=== PATIENT | female | born 1990 | race Asian ===

== ENCOUNTER 2019-10-25 02:36 | Emergency (ER) | payer OTHER ==
--- NOTE | 2019-10-25 03:05 | PDOC ---
History of Present Illness - General Chief Complaint: Nausea/Vomiting Stated Complaint: VOMITING,CRAMPS Time Seen by Provider: 10/25/19 03:04 Past History - Past Medical History Allergies/Adverse Reactions: Allergies Allergy/AdvReac Type Severity Reaction Status Date / Time No Known Allergies Allergy Verified 10/25/19 02:52 Home Medications: Ambulatory Orders Acetaminophen [Tylenol] 650 mg PO PRN PRN 10/25/19 Nitrofurantoin Macrocrystal [Nitrofurantoin] 100 mg PO BID 7 Days #14 capsule No122/Iron/Folic Acid [ Multi Tablet] 1 each PO DAILY 10/25/19 - Psycho Social/Smoking Cessation Hx Smoking History: Never smoked Have you smoked in the past 12 months: No Information on smoking cessation initiated: No Hx Alcohol Use: No Drug/Substance Use Hx: No *Physical Exam - Vital Signs Last Vital Signs Temp Pulse Resp BP Pulse Ox 97.5 F L 94 H 22 H 116/86 100 10/25/19 02:52 10/25/19 02:52 10/25/19 02:52 10/25/19 02:52 10/25/19 02:52 ED Treatment Course - LABORATORY CBC & Chemistry Diagram: 10/25/19 04:20 10/25/19 04:20 Medical Decision Making - Medical Decision Making 10/25/19 03:30 HPI: 29yo F no PMH at [id number] by ultrasound presents from home c/o 6hrs of N/V and epigastric pain. Pt was in [facility] today. Pt had small/usual size dinner cooked at home this PM. At 2130, pt developed nausea and nonbilious vomiting as well as epigastric poking type intermittent pain of gradual onset worsening without provoking/palliating factors without medications tried no hx similar sx or reflux. Pt went to sleep but when woke up pain was still there, worse, and pt continued to vomit 2x, for a total of 10x since starting. A few times there was a tiny speck of bright red blood in the vomit. Endorses PO intolerance even to water. Denies vaginal bleeding, vaginal discharge, dysuria, hematuria, contractions, lower abdominal pain, water breaking, fever, chills, fatigue, headache, dizziness, numbness/tingling, weakness, vision changes, shortness of breath, cough, chest pain, palpitations, leg swelling, blood in stool, constipation, dysuria, hematuria. Endorses few drops of clear/white fluid in underwear after vomiting hard which pt is unsure of is urine or discharge, denies feeling anything come out. Pt had 2 BMs today and 2nd one was watery/soft like diarrhea, nonbloody. Denies sick contacts, recent travel, recent antibiotic use, new foods. Food was cooked at home and ate same thing without similar sx. Improvement Spec - Dr Johnston ([facility]) ROS: Constitutional: Negative for chills, fever, fatigue, diaphoresis. HENT: Negative for sore throat, rhinorrhea, congestion. Eyes: Negative for visual disturbance. Respiratory: Negative for shortness of breath, cough, and wheezing. Cardiovascular: Negative for chest pain, palpitations, and leg swelling. Gastrointestinal: Positive for epigastric pain, nausea, vomiting, diarrhea. Negative for blood in stool, constipation. Genitourinary: Negative for dysuria, flank pain, and hematuria. Musculoskeletal: Negative for myalgias, back pain, and neck pain. Skin: Negative for rash. Neurological: Negative for light-headedness, dizziness, vertigo, syncope, weakness, numbness and headaches. Psychiatric/Behavioral: Negative for behavioral problems and confusion. PE: Gen: Alert, NAD, comfortable-appearing. HEENT: PERRL, EOMI, MMM, NCAT. No conjunctival pallor. Sclera are non-icteric. CV: Regular rate and rhythm. No murmurs, rubs, or gallops. PULM: No resp distress. CTAB, no wheezes, rales, or rhonchi. ABD: gravid uterus, slight epigastric TTP, soft, ND, no rebound tenderness or guarding, no CVA tenderness. BACK: No TTP of c/t/l-spine. No step-offs or deformities. MSK: No bony deformities. 2+ pulses in all extremities. NEURO: AAOx3. PERRL. No gross CN deficits. Strength and sensation grossly intact throughout. EXTREMITIES: No cyanosis. No clubbing. No edema. No calf tenderness. PSYCH: Normal mood and thought pattern. SKIN: Warm and dry. Normal capillary refill. No rashes. No jaundice. MDM: 29yo F no PMH at [id number] by ultrasound presents from home with 6hrs of N/V and epigastric pain, and 1 episode of diarrhea. Hemodynamically stable, afebrile, slight epigastric TTP, non-acute abdomen. Ddx: most consistent with gastroenteritis or gastritis/reflux. Also consider pancreatitis, metabolic derangement, cholelithiasis/cystitis, anemia, infection , cardiac pathology (very low concern due to lack of RFs or CP/SOB), gastroparesis of -EKG -CBC,CMP,Lipase,Mg,Phos,Trop,UA -IVF -Zofran, consider -safe GI cocktail pending reassessment -Dispo: likely L&D 10/25/19 06:07 Pt sleeping comfortably. Pt states nausea and pain improved s/p zofran and fluids. Labs reviewed. Pending UA and EKG. 10/25/19 07:31 UA positive for asymptomatic bacteriuria - macrobid here and rx sent. EKG reviewed: NSR, 87bpm, nromal intervals, normal axis, no e/o acute ischemia Medically cleared and safe to go to L&D for further evaluation. Discharge - Discharge Information Problems reviewed: Yes Clinical Impression/Diagnosis: Epigastric abdominal pain Condition: Stable Disposition: HOME - Additional Discharge Information Prescriptions: Nitrofurantoin Macrocrystal [Nitrofurantoin] 100 mg PO BID 7 Days #14 capsule - Follow up/Referral Referrals: Génesis Oliver MD [Staff Physician] - Janet Quinteros [Primary Care Provider] - - Patient Discharge Instructions Additional Instructions: Patient evaluated by Dr. Oliver. D/c home with instructions. Keep f/u apt. Patient verbalized understanding. D/c home stable and undelivered. Print Language: BULGARIAN - Post Discharge Activity
--- NOTE | 2019-10-25 03:12 | PDOC ---
Attending Attestation - Resident Resident Name: Lucille Duarte - ED Attending Attestation I have performed the following: I have examined & evaluated the patient, The case was reviewed & discussed with the resident, I agree w/resident's findings & plan - HPI HPI: 10/25/19 03:12 Pt comes with N/V she happens to be 30+ weeks . Vomiting becn 30 min after dinner. She doesn't think that she was food poisoned. She had diarrhea x 2 episodes. She has no other complaints. No fever No flank pain and no dysuria. She has no elevated BP or edema No SOB and no ill contacts. 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 No tachycardia Aefbrile Heart and lungs normal Abd soft NT ND No flank pain Pt has no pitting edema Only epigastric tenderness Minimal LLQ pain also with palpation - likely gas related. - Medical Decision Making 10/25/19 03:33 Pt will have basic labs and UA and hydration and then she will be sent to L+D for eval of the fetus. 10/25/19 04:52 WBC is elevated; but this is expected in a viral gastroenteritis or a food poisoning gastroenteritis 10/25/19 05:22 Chem is normal; INR is normal UA pending. If normal, she will be sent up to L+D 10/25/19 05:55 UA still pending 10/25/19 06:57 Pt will be signed out to the day ER docs. Heart Score/ECG Review - ECG Intrepretation Rhythm: Regular Rhythm - [place]: Normal - P and HI Prominent R with upright T in V1 (true posterior MN): No Delta Wave(s) Present: No WPW: No - QRS Poor R Wave Progression: No Q Wave Present: No - ST and T Early Repolarization: No Non Specific ST-T Wave changes: No Flattened T Waves: No Prolonged Q-T Interval: No - ECG Impressions Normal ECG: Yes Non-specific ST Elevation: No Ischemic Changes: No Bradycardia: No
[2019-10-25] MEDS ORDERED: SODIUM CHLORIDE 0.9% 500 ML INFUS.BAG IV ONE (03:13)
[2019-10-25] MEDS ORDERED: ONDANSETRON 4 MG/2 ML VIAL IVPUSH ONE (03:23)
[2019-10-25] MEDS ORDERED: ONDANSETRON 4 MG/2 ML VIAL ONE (04:08)
[2019-10-25 04:45] LABS: BASO % 0.3 % (0-2.0); EOS % 0.3 % (0-4.5); HEMATOCRIT 34.8 % (32.4-45.2); HEMOGLOBIN 11.6 GM/dL (10.7-15.3); LYMPH % 6.9 % (8-40); MCH 29.4 pg (25.7-33.7); MCHC 33.3 g/dl (32.0-36.0); MEAN CELL VOLUME 88.2 fl (80-96); MEAN PLT VOLUME 7.9 fl (7.5-11.1); MONO % 4.4 % (3.8-10.2); NEUT % 88.1 % (42.8-82.8); PLATELET COUNT 287 K/MM3 (134-434); RBC 3.94 M/mm3 (3.60-5.2); RDW 15.9 % (11.6-15.6); WHITE BLOOD COUNT 15.4 K/mm3 (4.0-10.0)
[2019-10-25 04:58] LABS: INR 0.96 (0.83-1.09); PROTHROMBIN TIME (PATIENT) 11.3 SEC (9.7-13.0)
[2019-10-25 05:12] LABS: ALBUMIN 2.8 g/dl (3.4-5.0); BILIRUBIN,TOTAL 0.4 mg/dL (0.2-1); BLOOD UREA NITROGEN 11.6 mg/dL (7-18); CALCIUM 8.2 mg/dL (8.5-10.1); CREATININE 0.5 mg/dL (0.55-1.3); TOT PROT 6.2 g/dl (6.4-8.2)
[2019-10-25 05:24] LABS: LIPASE 109 U/L (73-393); MAGNESIUM 1.9 mg/dL (1.8-2.4); PHOSPHOROUS 3.4 mg/dL (2.5-4.9)
[2019-10-25 06:57] LABS: EPI CELLS 6.6 /HPF (0-5/HPF); HYALINE CASTS 1 /lpf (0-8); URINE BACTERIA 365.1 /hpf (NEGATIVE); URINE RBC 3 /hpf (0-4); URINE WBC 3 /hpf (0-5)
[2019-10-25 06:58] LABS: URINE APPEARANCE Clear; URINE BILIRUBIN Negative (NEGATIVE); URINE COLOR Yellow; URINE GLUCOSE (UA) Negative (NEGATIVE); URINE KETONE Trace (NEGATIVE); URINE LEUK ESTERASE Negative (NEGATIVE); URINE NITRITE Negative (NEGATIVE); URINE PROTEIN Negative (NEGATIVE); URINE UROBILINOGEN 0.2 mg/dL (0.2-1.0)
[2019-10-25 07:12] LABS: PH,URINE 6.5 (5.0-8.0); URINE APPEARANCE CLEAR; URINE BILIRUBIN NEGATIVE (NEGATIVE); URINE COLOR YELLOW; URINE GLUCOSE (UA) NEGATIVE (NEGATIVE); URINE KETONE NEGATIVE (NEGATIVE); URINE LEUK ESTERASE NEGATIVE (NEGATIVE); URINE NITRITE NEGATIVE (NEGATIVE); URINE PROTEIN NEGATIVE (NEGATIVE); URINE UROBILINOGEN 0.2 mg/dL (0.2-1.0)
[2019-10-25] MEDS ORDERED: NITROFURANTOIN MACROCRYSTAL 50 MG CAPSULE (FP) ONE (07:30)
[2019-10-25] MEDS ORDERED: NITROFURANTOIN MACROCRYSTAL 50 MG CAPSULE (FP) PO SCH (07:30)
[2019-10-25 08:55] VITALS: BP 112/68; PULSE 82; TEMP 98.4
--- NOTE | 2019-10-25 14:11 | EKG ---
Test Reason : Blood Pressure : / mmHG Vent. Rate : 087 BPM Atrial Rate : 087 BPM P-R Int : 150 ms QRS Dur : 088 ms QT Int : 394 ms P-R-T Axes : 060 070 054 degrees QTc Int : 474 ms NORMAL SINUS RHYTHM EARLY REPOLARIZATION NO PREVIOUS ECGS AVAILABLE Confirmed by ETHEL COOPER MD ([id number]) on 10/25/2019 2:11:21 PM Referred By: Confirmed By:ETHEL COOPER MD
== END 2019-10-25 09:05 | disposition home or self-care (01) ==
LOC: JER 02:36
PROC: 3E033GC Introduction of Other Therapeutic Substance into Peripheral Vein, Percutaneous Approach (ICD-10-PCS; principal; 2019-10-25)
PROC: 3E0337Z Introduction of Electrolytic and Water Balance Substance into Peripheral Vein, Percutaneous Approach (ICD-10-PCS; 2019-10-25)
DX: O26.893 Other specified pregnancy related conditions, third trimester (principal); Z3A.33 33 weeks gestation of pregnancy; R10.13 Epigastric pain
CPT/HCPCS: 36415; 80053; 81003; 83690; 83735; 84100; 84484; 85025; 85610; 85730; 93005; 93010; 99283-25

== ENCOUNTER 2019-11-27 07:30 | Inpatient (IN) | payer OTHER ==
[~2019-11-27 07:30] MED LIST: ELECTROLYTE-148 SOLN 1,000 ML IV SCH
[2019-11-27] MEDS ORDERED: AMPICILLIN SODIUM 2 GM VIAL ONE (08:41)
[2019-11-27] MEDS ORDERED: AMPICILLIN - 2 GM in SODIUM CHLORIDE 100 ML IVPB ONE (08:45)
[2019-11-27 09:18] VITALS: BMI 20.7
[2019-11-27 10:29] LABS: BASO % 0.4 % (0-2.0); EOS % 0.5 % (0-4.5); HEMATOCRIT 34.9 % (32.4-45.2); HEMOGLOBIN 11.6 GM/dL (10.7-15.3); LYMPH % 17.9 % (8-40); MCH 28.8 pg (25.7-33.7); MCHC 33.2 g/dl (32.0-36.0); MEAN CELL VOLUME 86.6 fl (80-96); MEAN PLT VOLUME 7.8 fl (7.5-11.1); MONO % 7.6 % (3.8-10.2); NEUT % 73.6 % (42.8-82.8); PLATELET COUNT 274 K/MM3 (134-434); RBC 4.02 M/mm3 (3.60-5.2); WHITE BLOOD COUNT 8.5 K/mm3 (4.0-10.0)
[2019-11-27 10:31] LABS: BLOOD UREA NITROGEN 14.2 mg/dL (7-18); CALCIUM 8.9 mg/dL (8.5-10.1); CREATININE 0.6 mg/dL (0.55-1.3); POTASSIUM 3.6 mmol/L (3.5-5.1)
[2019-11-27 10:31] LABS: INR 0.93 (0.83-1.09)
[2019-11-27 10:34] LABS: ACTIVATED PTT 29.3 SECONDS (25.2-36.5)
[2019-11-27] MEDS ORDERED: AMPICILLIN SODIUM 1 GM VIAL ONE ×3 (12:45→20:04)
[2019-11-27] MEDS: AMPICILLIN - 1 GM in SODIUM CHLORIDE 100 ML IVPB SCH ×3 (12:45→20:15)
[2019-11-27] MEDS ORDERED: OXYTOCIN 30 UNITS in 0.9% NS 30 UNIT/500 ML INFUS.BAG IVPB SCH (14:00)
[2019-11-27] MEDS ORDERED: OXYTOCIN 30 UNITS in 0.9% NS 30 UNIT/500 ML INFUS.BAG IVPB ONE (14:02)
[2019-11-27] MEDS ORDERED: ELECTROLYTE-148 SOLN 1,000 ML IV SCH (16:00)
--- NOTE | 2019-11-27 16:00 | HP ---
Past Medical History - Primary Care Physician PCP:: Anthony Baron - Admission Chief Complaint: 29yo P0 with at EGA 38w1d admitted with spontaneous labor. History of Present Illness: complicated by: GDMA A1 Vaginal GBS (+) History Source: Patient, Medical Record Limitations to Obtaining History: No Limitations - Past Medical History RECREATION FACILITY ATTENDANT: No: Alzheimer's, CVA, Dementia, Migraine, Multiple Sclerosis, Peripheral Neuropathy, Parkinson's, Seizure, Syncope, TIA, Vertigo, Other Cardiovascular: No: AFIB, Aneurysm, Aortic Insufficiency, Aortic Stenosis, CAD, CHF, Deep Vein Thrombosis, HTN, Hyperlipdemia, MO, Mitral Insufficiency, Mitral Stenosis, Murmur, Pulmonary Hypertension, Other Pulmonary: No: Asthma, Bronchitis, Cancer, COPD, O2 Dependent, Pneumonia, Previously Intubated, Pulmonary Embolus, Pulmonary Fibrosis, Sleep Apnea, Other Gastrointestinal: No: Ascites, Cancer, Constipation, Crohn's Disease, Diverticulitis, Diverticulosis, Esophageal Varices, Gastritis, GERD, GI Bleed, Hemorrhoids, Hiatal Hernia, Inflamatory Bowel Disease, Irritable Bowel Disease, Pancreatitis, Peptic Ulcer Disease, Ulcerative Colitis, Other Hepatobiliary: No: Cirrhosis, Cholelithiasis, Cholecystitis, Choledocholithiasis , Hepatitis A, Hepatitis B, Hepatitis C, Other Renal/: No: Renal Failure, Renal Inusuff, BPH, Cancer, Hematuria, Hemodialysis , Neurogenic Bladder, Renal Calculi, UTI, Other Reproductive: No: Ectopic , Endometriosis, Fibroids, PID, Polycystic Ovary Syndrome, Postmenopausal, Other ...: 1 ...Para: 0 ...Term: 0 ...: 0 ...Spon : 0 ...Induced : 0 ...Multiple Gestation: 0 ...LMP: 02/13/19 ... Weeks Gestation by Dates: 38.1 ...EDC by Sono: 12/10/19 Heme/Onc: No: Anemia, B12 Deficiency, Bleeding Disorder, Cancer, Current Chemotherapy, Current Radiation Therapy, Hemochromatosis, Hypercoaguable State, Myeloproliferative Synd, Sickle Cell Disease, Sickle Cell Trait, Thrombocytopenia, Other Infectious Disease: No: AIDS, C-Diff, Herpes Zoster, HIV, MRSA, STD's, Tuberculosis, VREF, Other Psych: No: Addictions, Anxiety, Bipolar, Depression, Panic, Psychosis, Schizophrenia, Other Musculoskeletal: No: Bursitis, Chronic low back pain, Hemiparesis, Hemiplegia, Osteoarthritis, Paraplegia, Other Rheumatology: No: Fibromyalgia, Gout, Lupus, Rheumatoid Arthritis, Sarcoidosis, Vasculitis, Other ENT: No: Allergic Rhinitis, Sinusitis, Other Endocrine: No: [place]'s Disease, [place]'s Disease, Diabetes Insipidus, Diabetes Mellitus, Hyperparathyroidism, Hyperthyroidism, Hypothyroidism, Osteopenia, SIADH, Other Dermatology: No: Basal Cell, Cellulitis, Eczema, Melanoma, Psoriasis, Squamous Cell, Other - Past Surgical History Past Surgical History: Yes: None Hx Myomectomy: No Hx Transabdominal Cerclage: No - Smoking History Smoking history: Never smoked Have you smoked in the past 12 months: No - Alcohol/Substance Use Hx Alcohol Use: No History of Substance Use: reports: None - Social History Usual Living Arrangement: Yes: With Spouse ADL: Independent History of Recent Travel: No Home Medications - Allergies Allergies/Adverse Reactions: Allergies Allergy/AdvReac Type Severity Reaction Status Date / Time No Known Allergies Allergy Verified 11/27/19 08:06 - Home Medications Home Medications: Ambulatory Orders No122/Iron/Folic Acid [ Multi Tablet] 1 each PO DAILY 10/25/19 Magnesium 200 mg PO WEEKLY 11/27/19 Family Medical History Family Hx Cardiac Disorders: Mother Review of Systems Findings/Remarks: Well appearing, NAD - Review of Systems Constitutional: reports: No Symptoms Eyes: reports: No Symptoms HENT: reports: No Symptoms Neck: reports: No Symptoms Cardiovascular: reports: No Symptoms Respiratory: reports: No Symptoms Gastrointestinal: reports: No Symptoms Genitourinary: reports: No Symptoms Breasts: reports: No Symptoms Reported Musculoskeletal: reports: No Symptoms Integumentary: reports: No Symptoms Neurological: reports: No Symptoms Endocrine: reports: No Symptoms Hematology/Lymphatic: reports: No Symptoms Psychiatric: reports: No Symptoms Pain Intensity: 1 Physical Exam - Maternity Vital Signs: Vital Signs Temperature 98.2 F 11/27/19 14:00 Pulse Rate 82 11/27/19 14:00 Respiratory Rate 18 11/27/19 14:00 Blood Pressure 112/66 11/27/19 14:00 O2 Sat by Pulse Oximetry (%) Constitutional: Yes: Well Nourished, No Distress, Calm Eyes: Yes: WNL, Conjunctiva Clear HENT: Yes: WNL, Atraumatic, Normocephalic Neck: Yes: WNL, Supple, Trachea Midline Cardiovascular: Yes: WNL, Regular Rate and Rhythm Lungs: Clear to auscultation, Normal air movement Breast(s): Yes: WNL - Abdominal Exam/OB Fundal Height: 38 Number of Fetuses: Single Presentation: Vertex Contractions: Yes Regularity: Irregular Intensity: Mild Monitor Mode: External Heart Rate (range): 140 Heart Rate Location: Midline Category: I Accelerations: Uniform Decelerations: None - Vaginal Exam/OB Vaginal Bleediing: No Speculum Exam: No Dilatation (cm): 3 Effacement (%): 50 Amniotic Membrane Status: Ruptured (AROM) Amniotic Fluid: Yes: Clear Presentation: Vertex/Position Station: -1 (EFW ~3100g by Hernandez's maneuvers, gynecoid pelvimetry) - Physical Exam Musculoskeletal: Yes: WNL Extremities: Yes: WNL Edema: No Integumentary: Yes: WNL Deep Tendon Reflex Grade: Normal +2 ...Motor Strength: WNL Psychiatric: Yes: WNL, Alert, Oriented - Labs Lab Results: CBC, BMP 11/27/19 09:28 11/27/19 08:53 Hemorrhage Risk Assessment - Risk Factors Medium Risk Factors: Yes: None High Risk Factors: Yes: None Risk Score: 1 Risk Level: Medium Risk Imaging - Results Ultrasound: Report Reviewed Assessment/Plan 29yo P0 with at EGA 38w1d admitted with spontaneous labor. Labor is latent phase and the contractions had stread out, became very mild. No cervical change was noted from admission to now. Tx options were reviewed with pt and pitocin augmentation was recommended. We discussed the risks, benefits, alternatives of pitocin vs expectant management or C/S. The pt prefers pitocin augmentation. Fetus with Category I tracing and does not need intervention. Plan to monitor labor progress.
[2019-11-27] MEDS ORDERED: FENTANYL/BUPIVACAINE/NS/PF - PCEA - 50 ML DISP.SYRIN EP ONE (17:33)
[2019-11-27] MEDS ORDERED: NALOXONE HCL 0.4 MG/ML VIAL IVPUSH PRN (17:46)
[2019-11-27] MEDS ORDERED: FENTANYL/BUPIVACAINE/NS/PF - PCEA - 50 ML DISP.SYRIN EP SCH (18:00)
[2019-11-27] MEDS ORDERED: OXYTOCIN 20 UNITS in 0.9% NS 20 UNIT/1,000 ML INFUS.BAG IV ONE ×2 (19:13→23:46)
[2019-11-27] MEDS ORDERED: LIDOCAINE HCL 1% PRESERVATIVE FREE - 30ML VIAL ONE (21:10)
[2019-11-27] MEDS ORDERED: BISACODYL 10 MG SUPP.RECT RC PRN (22:02)
[2019-11-27] MEDS ORDERED: BENZOCAINE 28 GM HEMORRHOIDAL OINTMENT TP PRN (22:02)
[2019-11-27] MEDS ORDERED: WITCH HAZEL 50% (TUCKS) 40 PAD/JAR PAD TP PRN (22:02)
[2019-11-27] MEDS ORDERED: METHYLERGONOVINE MALEATE 0.2 MG/1 ML AMP IM PRN (22:02)
[2019-11-27] MEDS ORDERED: BENZOCAINE 20% 57 GM BOTTLE TP PRN (22:02)
[2019-11-27] MEDS ORDERED: OXYTOCIN 20 UNITS in 0.9% NS 20 UNIT/1,000 ML INFUS.BAG IV SCH (22:15)
[2019-11-28 08:03] LABS: BASO % 0.2 % (0-2.0); EOS % 0.2 % (0-4.5); HEMATOCRIT 31.9 % (32.4-45.2); HEMOGLOBIN 10.5 GM/dL (10.7-15.3); LYMPH % 13.1 % (8-40); MCH 28.4 pg (25.7-33.7); MCHC 32.9 g/dl (32.0-36.0); MEAN CELL VOLUME 86.4 fl (80-96); MEAN PLT VOLUME 7.5 fl (7.5-11.1); NEUT % 80.5 % (42.8-82.8); PLATELET COUNT 214 K/MM3 (134-434); RBC 3.69 M/mm3 (3.60-5.2)
[2019-11-28] MEDS: PRENATAL VITAMINS W/ FOLIC ACID TABLET (FP) PO SCH (10:51)
[2019-11-28 12:21] LABS: POC NITRAZINE NEG
[2019-11-28] MEDS: IBUPROFEN 600 MG TABLET (FP) PO PRN (15:29)
[2019-11-28] MEDS: ACETAMINOPHEN 325 MG TABLET (FP) PO PRN (15:30)
--- NOTE | 2019-11-28 19:54 | PN ---
Delivery - Delivery Vaginal Delivery: No Problems, Spontaneous Type of Anesthesia: Epidural Episiotomy/Laceration: Midline (episiotomy) EBL (cc): 300 Delivery, Single - Stages of Labor Date 1st Stage Initiatied: 11/27/19 Time 1st Stage Initiated: 14:05 Date 2nd Stage Initiated: 11/27/19 Time 2nd Stage Initiated: 20:50 Date of Delivery: 11/27/19 Time of Delivery: 21:33 Time Placenta Delivered: 21:49 Placenta: Yes: Spontaneous, Normal Configuration - Condition of Infant Clinic Assistant/Mail Carrier And Clerk Present: No Infant Gender: Male Weight: 2.722 kg Position: Right, OA Total Hours ROM (Hrs/Mins): 6 HOURS/ 32 MINUTES - 1 Minute Total Score: 9 5 Minutes Total Score: 9 - [place] Feeding Plan Initial Plan: Exclusive throughout hospitalization Benefits of Exclusively reinforced: Yes Remarks - Remarks Remarks: Uncomplicated .
--- NOTE | 2019-11-28 19:56 | PN ---
Post Progress Note - Subjective Subjective: Patient without acute complaints. Reports tolerating oral intake without nausea or vomiting. Ambulating without dizziness. Denies fevers or chills. Pain well controlled with oral pain medication. Pumping/breast feeding without issue. Passing flatus and had BM. Post Day: 1 Type of Delivery: Vital Signs: Vital Signs Temperature 98.2 F 11/28/19 18:00 Pulse Rate 74 11/28/19 18:00 Respiratory Rate 20 11/28/19 18:00 Blood Pressure 118/68 11/28/19 18:00 O2 Sat by Pulse Oximetry (%) 100 11/27/19 21:00 Uterus: Yes: Fundus Firm, Fundus below umbilicus, Non-tender Abdomen/GI: Yes: Abdomen soft, Passing flatus, Tolerating PO Lochia: Yes: Rubra Lochia, amount: Small Extremities: Yes: Calves non-tender Perineum: Yes: Episiotomy (repair intact) Activity: Ambulating - Labs Labs: CBC WBC 14.0 K/mm3 (4.0-10.0) H 11/28/19 07:20 RBC 3.69 M/mm3 (3.60-5.2) 11/28/19 07:20 Hgb 10.5 GM/dL (10.7-15.3) L 11/28/19 07:20 Hct 31.9 % (32.4-45.2) L 11/28/19 07:20 MCV 86.4 fl (80-96) 11/28/19 07:20 MCH 28.4 pg (25.7-33.7) 11/28/19 07:20 MCHC 32.9 g/dl (32.0-36.0) 11/28/19 07:20 RDW 15.0 % (11.6-15.6) 11/28/19 07:20 Plt Count 214 K/MM3 (134-434) D 11/28/19 07:20 MPV 7.5 fl (7.5-11.1) 11/28/19 07:20 Absolute Neuts (auto) 11.2 K/mm3 (1.5-8.0) H 11/28/19 07:20 Neutrophils % 80.5 % (42.8-82.8) 11/28/19 07:20 Lymphocytes % 13.1 % (8-40) D 11/28/19 07:20 Monocytes % 6.0 % (3.8-10.2) 11/28/19 07:20 Eosinophils % 0.2 % (0-4.5) 11/28/19 07:20 Basophils % 0.2 % (0-2.0) 11/28/19 07:20 Nucleated RBC % 0 % (0-0) 11/28/19 07:20 Assessment/Plan 29 yo P1 s/p , doing well stable, afebrile. Asymptomatic for anemia. care instructions reviewed. Continue routine care. Ambulation encouraged Discharge instruction reviewed.
--- NOTE | 2019-11-28 19:58 | DS ---
Physical Exam-ELECTRICAL PRODUCTS ENGINEER Vital Signs: Vital Signs Temperature 98.2 F 11/28/19 18:00 Pulse Rate 74 11/28/19 18:00 Respiratory Rate 20 11/28/19 18:00 Blood Pressure 118/68 11/28/19 18:00 O2 Sat by Pulse Oximetry (%) 100 11/27/19 21:00 Constitutional: Yes: Well Nourished, No Distress, Calm Eyes: Yes: WNL, Conjunctiva Clear, EOM Intact HENT: Yes: WNL, Atraumatic, Normocephalic Neck: Yes: WNL, Supple, Trachea Midline Cardiovascular: Yes: WNL, Regular Rate and Rhythm Respiratory: Yes: WNL, Regular, CTA Bilaterally Gastrointestinal: Yes: WNL, Normal Bowel Sounds, Soft ...Rectal Exam: Yes: Deferred Renal/: Yes: WNL Internal Exam Deferred: Yes ....Post : Yes: Uterus firm, Uterus non-tender, Slight lochia rubra Breast(s): Yes: WNL Musculoskeletal: Yes: WNL Extremities: Yes: WNL Edema: Yes Edema: LLE: Trace, RLE: Trace Integumentary: Yes: WNL Neurological: Yes: WNL, Alert, Oriented ...Motor Strength: WNL Psychiatric: Yes: WNL, Alert, Oriented Labs: CBC, BMP 11/28/19 07:20 11/27/19 08:53 Delivery - Delivery Vaginal Delivery: No Problems, Spontaneous Type of Anesthesia: Epidural Episiotomy/Laceration: Midline (episiotomy) EBL (cc): 300 Delivery, Single - Stages of Labor Date 1st Stage Initiatied: 11/27/19 Time 1st Stage Initiated: 14:05 Date 2nd Stage Initiated: 11/27/19 Time 2nd Stage Initiated: 20:50 Date of Delivery: 11/27/19 Time of Delivery: 21:33 Time Placenta Delivered: 21:49 Placenta: Yes: Spontaneous, Normal Configuration - Condition of Computer Hardware Developer/[place] Rafting Guide Present: No Infant Gender: Male Weight: 2.722 kg Position: Right, OA Total Hours ROM (Hrs/Mins): 6 HOURS/ 32 MINUTES - 1 Minute Total Score: 9 5 Minutes Total Score: 9 - [place] Feeding Plan Initial Plan: Exclusive throughout hospitalization Benefits of Exclusively reinforced: Yes Remarks - Remarks Remarks: Uncomplicated . Discharge Summary Problems reviewed: Yes Reason For Visit: ADMIT LABOR Spont labor Procedures: Principal: Hospital Course: Normal course Condition: Good - Instructions Diet, Activity, Other Instructions: Physical activity Resume your normal everyday activity as tolerated no heavy lifting or exercise until seen by your surgeon. You may walk unlimited johnson of and climb stairs. You may resume driving the car when you feel safe and comfortable behind the wheel. No sexual activity as instructed. Wound care If you have a bandage, leave it on, and keep dry for 48-72 hours. After that time discard the outer bandage. If they are tapes on the skin under the out of bandage leave them in place. They will peel off in the next 7 to 10 days. Do Not Peel them off. You may shower the day after surgery. If there are tapes present on the skin, you may shower over them. Diet There are no dietary restrictions. Eat healthy, high-fiber foods. Drink 6 to 8 glasses of liquid each day. This will assist in keeping your bowels are regular. Pain management You may take Tylenol or acetaminophen or Ibuprofen (for example, Motrin, Advil etc.) from my pain prescription medication is ordered should be taken as prescribed for moderate to severe pain. Call MD for any of the following: Severe pain not relieved by medication Fever of 101 or higher Excessive bleeding or drainage on dressing Inability to urinate Referrals: Qi Dumont MD [Staff Physician] - Disposition: HOME - Home Medications Comprehensive Discharge Medication List: Ambulatory Orders No122/Iron/Folic Acid [ Multi Tablet] 1 each PO DAILY 10/25/19 Magnesium 200 mg PO WEEKLY 11/27/19 Prescription Drug Monitoring Program (I-STOP) results: I-STOP not reviewed
[2019-11-28] MEDS ORDERED: SENNOSIDES/DOCUSATE COMBO (SENNA PLUS) TABLET (UD) PO PRN (22:00)
[2019-11-29] MEDS: IBUPROFEN 600 MG TABLET (FP) PO PRN (01:38)
[2019-11-29] MEDS: ACETAMINOPHEN 325 MG TABLET (FP) PO PRN (01:38)
--- NOTE | 2019-11-29 07:46 | PN ---
Progress Note (short form) - Note Progress Note: ppd 2 , doing well, no c/o , voids ok CBC, BMP 11/28/19 07:20 11/27/19 08:53 Last Vital Signs Temp Pulse Resp BP Pulse Ox 98.7 F 96 H 18 116/58 L 100 11/28/19 21:48 11/28/19 21:48 11/28/19 21:48 11/28/19 21:48 11/27/19 21:00 abdomen soft, no distension, no cva uterus firm, non tender lochia mild no calf tenderness plan d/c home, follow up 4 weeks in office
[2019-11-29] MEDS: PRENATAL VITAMINS W/ FOLIC ACID TABLET (FP) PO SCH (11:38)
[2019-11-29 14:03] VITALS: BP 126/78; PULSE 72; TEMP 98.2
== END 2019-11-29 15:17 | disposition home or self-care (01) | DRG 560 ==
LOC: JDEL 07:30 → JLDR 08:30 → J3W 23:55
PROVIDERS: ADMIT Obstetrics & Gynecology; ATTEND Obstetrics & Gynecology
PROC: 0W8NXZZ Division of Female Perineum, External Approach (ICD-10-PCS; principal; 2019-11-27)
PROC: 10E0XZZ Delivery of Products of Conception, External Approach (ICD-10-PCS; 2019-11-27)
DX: O24.429 Gestational diabetes mellitus in childbirth, unspecified control (principal); O99.02 Anemia complicating childbirth; D64.9 Anemia, unspecified; O99.824 Streptococcus B carrier state complicating childbirth; Z3A.38 38 weeks gestation of pregnancy; Z37.0 Single live birth
CPT/HCPCS: 36415; 59025; 59409; 80048; 82962; 83986-QW; 85025; 85610; 85730; 86593; 86850; 86900; 86901

== ENCOUNTER 2021-09-01 15:20 | Inpatient (IN) | payer OTHER ==
[2021-09-01] MEDS ORDERED: OXYTOCIN 30 UNITS in 0.9% NS 30 UNIT/500 ML INFUS.BAG IVPB SCH (15:45)
[2021-09-01] MEDS ORDERED: ELECTROLYTE-148 SOLN 1,000 ML IV SCH (15:45)
[2021-09-01 16:31] VITALS: BMI 21.1
[2021-09-01] MEDS ORDERED: OXYTOCIN 30 UNITS in 0.9% NS 30 UNIT/500 ML INFUS.BAG IVPB ONE (16:38)
[2021-09-01 16:43] LABS: BASO % 0.8 % (0-2.0); EOS % 0.6 % (0-4.5); HEMATOCRIT 36.3 % (32.4-45.2); LYMPH % 24.5 % (8-40); MCH 26.9 pg (25.7-33.7); MCHC 32.9 g/dl (32.0-36.0); MEAN CELL VOLUME 81.7 fl (80-96); MEAN PLT VOLUME 8.1 fl (7.5-11.1); MONO % 5.8 % (3.8-10.2); NEUT % 68.3 % (42.8-82.8); PLATELET COUNT 254 10^3/uL (134-434); RBC 4.44 M/mm3 (3.60-5.2); RDW 15.6 % (11.6-15.6); WHITE BLOOD COUNT 7.6 K/mm3 (4.0-10.0)
[2021-09-01 16:50] LABS: INR 0.87 (0.83-1.09); PROTHROMBIN TIME (PATIENT) 10.7 SEC (9.7-13.0)
[2021-09-01 16:53] LABS: ACTIVATED PTT 30.5 SECONDS (25.2-36.5)
[2021-09-01 16:58] LABS: BLOOD UREA NITROGEN 15.1 mg/dL (7-18); CALCIUM 8.5 mg/dL (8.5-10.1)
[2021-09-01 17:02] LABS: CREATININE 0.9 mg/dL (0.55-1.3)
[2021-09-01 17:53] LABS: HIV INTERPRETATION NEGATIVE (NEGATIVE)
[2021-09-01] MEDS ORDERED: PCA PUMP NR ONE (19:43)
[2021-09-01] MEDS ORDERED: FENTANYL/BUPIVACAINE/NS/PF - PCEA - 50 ML DISP.SYRIN EP ONE (19:43)
[2021-09-01] MEDS ORDERED: BUPIVACAINE HCL/PF 0.25% (2.5MG/ML) 10 ML VIAL ONE ×2 (21:22→21:50)
[2021-09-01] MEDS ORDERED: LIDOCAINE HCL 1% PRESERVATIVE FREE - 30ML VIAL ONE (22:58)
[2021-09-01] MEDS ORDERED: BENZOCAINE 28 GM HEMORRHOIDAL OINTMENT TP PRN (23:12)
[2021-09-01] MEDS ORDERED: BENZOCAINE 20% 57 GM BOTTLE TP PRN (23:12)
[2021-09-01] MEDS ORDERED: METHYLERGONOVINE MALEATE 0.2 MG/1 ML AMP IM PRN (23:12)
[2021-09-01] MEDS ORDERED: ACETAMINOPHEN 325 MG TABLET (FP) PO PRN (23:12)
[2021-09-01] MEDS ORDERED: WITCH HAZEL 50% (TUCKS) 40 PAD/JAR PAD TP PRN (23:12)
[2021-09-01] MEDS ORDERED: BISACODYL 10 MG SUPP.RECT RC PRN (23:12)
[2021-09-01] MEDS ORDERED: OXYTOCIN 20 UNITS in 0.9% NS 20 UNIT/1,000 ML INFUS.BAG IV SCH (23:15)
[2021-09-01] MEDS ORDERED: OXYTOCIN 20 UNITS in 0.9% NS 20 UNIT/1,000 ML INFUS.BAG IV ONE (23:33)
[2021-09-01 23:43] LABS: CORD BASE EXCESS -5.4 mmol/L (0-2); CORD HCO3 20.6 mmHg (20-29); CORD PCO2 41.9 mmHg (30-78); CORD pH 7.31 (7.14-7.44)
[2021-09-01 23:44] LABS: CORD BASE EXCESS -8.9 mmol/L (0-2); CORD HCO3 18.5 mmHg (20-29); CORD PCO2 44.8 mmHg (30-78); CORD pH 7.233 (7.14-7.44)
[2021-09-02] MEDS ORDERED: NALOXONE HCL 0.4 MG/ML VIAL IVPUSH PRN (01:19)
[2021-09-02] MEDS ORDERED: FENTANYL/BUPIVACAINE/NS/PF - PCEA - 50 ML DISP.SYRIN EP SCH (01:30)
[2021-09-02] MEDS: IBUPROFEN 600 MG TABLET (FP) PO PRN ×2 (02:02→05:31)
[2021-09-02 09:11] LABS: BASO % 0.4 % (0-2.0); EOS % 0.4 % (0-4.5); HEMATOCRIT 33.3 % (32.4-45.2); HEMOGLOBIN 11.1 GM/dL (10.7-15.3); LYMPH % 15.7 % (8-40); MCH 27.6 pg (25.7-33.7); MCHC 33.4 g/dl (32.0-36.0); MEAN CELL VOLUME 82.7 fl (80-96); MEAN PLT VOLUME 7.8 fl (7.5-11.1); MONO % 7.5 % (3.8-10.2); PLATELET COUNT 232 10^3/uL (134-434); RBC 4.03 M/mm3 (3.60-5.2); RDW 15.6 % (11.6-15.6); WHITE BLOOD COUNT 16.3 K/mm3 (4.0-10.0)
[2021-09-02] MEDS ORDERED: SENNOSIDES/DOCUSATE COMBO (SENNA PLUS) TABLET (UD) PO PRN (22:00)
[2021-09-03] MEDS ORDERED: FLU VACC QS2021-22(6MOS UP)/PF 60 MCG/0.5 ML SYRINGE IM ONE (10:00)
[2021-09-03 10:51] VITALS: BP 117/74; PULSE 96; TEMP 98.7
== END 2021-09-03 18:00 | disposition home or self-care (01) | DRG 560 ==
LOC: JLDR 15:20 → J3W 09-02 00:58
PROVIDERS: ADMIT Obstetrics & Gynecology; ATTEND Obstetrics & Gynecology
PROC: 10E0XZZ Delivery of Products of Conception, External Approach (ICD-10-PCS; principal; 2021-09-01)
PROC: 0W8NXZZ Division of Female Perineum, External Approach (ICD-10-PCS; 2021-09-01)
PROC: 0HQ9XZZ Repair Perineum Skin, External Approach (ICD-10-PCS; 2021-09-01)
DX: O14.94 Unspecified pre-eclampsia, complicating childbirth (principal); O24.410 Gestational diabetes mellitus in pregnancy, diet controlled; O70.0 First degree perineal laceration during delivery; O69.81X0 Labor and delivery complicated by cord around neck, without compression, not applicable or unspecified; Z3A.49 Greater than 42 weeks gestation of pregnancy; Z37.0 Single live birth
CPT/HCPCS: 36415; 36600; 59409; 80048; 82803; 85025; 85610; 85730; 86780; 86850; 86900; 86901; 87389; 90686; C9803; G0008; U0003; U0005

== ENCOUNTER 2024-12-14 09:21 | Emergency (ER) | payer OTHER ==
[2024-12-14 09:29] VITALS: BP 129/72; PULSE 92; RESP 20; TEMP 98.5; BMI 21.4
[2024-12-14] MEDS ORDERED: METOCLOPRAMIDE HCL INJECTION 10 MG/2 ML VIAL IVPB ONE (09:48)
[2024-12-14] MEDS ORDERED: ACETAMINOPHEN INJECTION 100 ML ONE (10:20)
[2024-12-14 10:31] LABS: BASO % 0.2 % (0-2.0); EOS % 0.8 % (0-4.5); HEMATOCRIT 35.3 % (32.4-45.2); HEMOGLOBIN 11.7 GM/dL (10.7-15.3); LYMPH % 13.9 % (8-40); MCH 27.2 pg (25.7-33.7); MEAN CELL VOLUME 82.4 fl (80-96); MONO % 6.3 % (3.8-10.2); NEUT % 78.8 % (42.8-82.8); PLATELET COUNT 293 10^3/uL (134-434); RBC 4.28 M/mm3 (3.60-5.2); RDW 15.1 % (11.6-15.6); WHITE BLOOD COUNT 8.5 K/mm3 (4.0-10.0)
[2024-12-14] MEDS: ACETAMINOPHEN 1000 MG/100 ML BAG IVPB ONE (10:32)
[2024-12-14] MEDS: SODIUM CHLORIDE 0.9% 500 ML INFUS.BAG IV ONE (10:32)
[2024-12-14 10:47] LABS: PH,URINE 6.5 (5.0-8.0); URINE APPEARANCE CLOUDY; URINE BILIRUBIN NEGATIVE (NEGATIVE); URINE COLOR YELLOW; URINE GLUCOSE (UA) 1+ (NEGATIVE); URINE KETONE NEGATIVE (NEGATIVE); URINE LEUK ESTERASE TRACE (NEGATIVE); URINE NITRITE NEGATIVE (NEGATIVE); URINE PROTEIN NEGATIVE (NEGATIVE); URINE UROBILINOGEN 0.2 mg/dL (0.2-1.0)
[2024-12-14 11:04] LABS: CALCIUM 9.1 mg/dL (8.5-10.1)
[2024-12-14 11:05] LABS: ALBUMIN 3.3 g/dl (3.4-5.0); BLOOD UREA NITROGEN 7.1 mg/dL (7-18)
[2024-12-14 11:08] LABS: CREATININE 0.4 mg/dL (0.55-1.3)
[2024-12-14 11:10] LABS: BILIRUBIN,TOTAL 0.3 mg/dL (0.2-1); TOT PROT 6.8 g/dl (6.4-8.2)
[2024-12-14 11:47] LABS: URINE RBC 29 /uL (0-23.9); URINE WBC 44 /uL (0-25.8)
[2024-12-14 11:48] LABS: EPI CELLS 153 /uL (0-25.1); HYALINE CASTS 1 /uL (0-3.1); URINE BACTERIA 258 /uL (0-1359); YEAST NONE SEEN (NEGATIVE)
[2024-12-14 11:49] LABS: HIV INTERPRETATION NEGATIVE (NEGATIVE)
== END 2024-12-14 12:31 | disposition home or self-care (01) ==
LOC: JER 09:21
PROC: 3E033NZ Introduction of Analgesics, Hypnotics, Sedatives into Peripheral Vein, Percutaneous Approach (ICD-10-PCS; principal; 2024-12-14)
DX: O99.891 Other specified diseases and conditions complicating pregnancy (principal); R51.9 Headache, unspecified; Z3A.15 15 weeks gestation of pregnancy; Z20.822 Contact with and (suspected) exposure to COVID-19
CPT/HCPCS: 0241U-QW; 36415; 80053; 81003; 85025; 86803; 87086; 87389; 99284-25; J0131

== ENCOUNTER 2025-05-06 07:25 | Inpatient (IN) | payer OTHER ==
[2025-05-06 08:10] LABS: ABSOLUTE IMMATURE GRANULOCYTES 0.05 x10^3/uL (0.0-0.031); BASOPHILS # 0.03 x10^3/uL (0.01-0.08); EOSINOPHIL % 0.8 % (0.7-5.8); EOSINOPHILS # 0.06 x10^3/uL (0.04-0.36); HEMATOCRIT 38.7 % (34.1-44.9); HEMOGLOBIN 12.3 g/dL (11.2-15.7); MCHC 31.8 g/dl (32.2-35.5); MEAN CELL VOLUME 87.8 fl (79.4-94.8); MEAN PLT VOLUME 10.5 fl (9.4-12.3); MONOCYTE # 0.52 x10^3/uL (0.24-0.86); MONOCYTE % 6.8 % (4.7-12.5); PLATELET COUNT 269 x10^3/uL (182-369); RDW 15.9 % (12.1-16.8)
[2025-05-06] MEDS: ELECTROLYTE-148 SOLN 1,000 ML IV SCH ×2 (08:15→11:00)
[2025-05-06 08:25] LABS: INR 0.99 (0.83-1.09); PROTHROMBIN TIME (PATIENT) 10.8 SEC (9.7-13.0)
[2025-05-06 08:27] LABS: ACTIVATED PTT 28.7 SECONDS (25.2-36.5)
[2025-05-06 08:44] LABS: POTASSIUM 3.8 mmol/L (3.5-5.1)
[2025-05-06 08:45] LABS: CALCIUM 9.6 mg/dL (8.5-10.1)
[2025-05-06 08:46] LABS: BLOOD UREA NITROGEN 17.5 mg/dL (7-18)
[2025-05-06 08:49] LABS: CREATININE 0.6 mg/dL (0.55-1.3)
[2025-05-06 09:19] VITALS: RESP 18; BMI 22.9
[2025-05-06] MEDS: OXYTOCIN 30 UNITS in 0.9% NS 30 UNIT/500 ML INFUS.BAG IVPB SCH (09:30)
[2025-05-06] MEDS ORDERED: PROMETHAZINE HCL 25 MG/1 ML VIAL ONE (11:44)
[2025-05-06] MEDS ORDERED: BUTORPHANOL TARTRATE 2 MG/ML VIAL ONE (11:44)
[2025-05-06] MEDS: BUTORPHANOL TARTRATE 2 MG/ML VIAL IVPB ONE (11:55)
[2025-05-06] MEDS: PROMETHAZINE HCL 25 MG/1 ML VIAL IVPB ONE (11:55)
[2025-05-06] MEDS ORDERED: FENTANYL/BUPIVACAINE/NS/PF - PCEA - 50 ML DISP.SYRIN EP ONE (16:12)
[2025-05-06] MEDS: FENTANYL/BUPIVACAINE/NS/PF - PCEA - 50 ML DISP.SYRIN EP SCH (16:30)
[2025-05-06] MEDS ORDERED: NALOXONE HCL 0.4 MG/ML VIAL IVPUSH PRN (17:12)
[2025-05-06] MEDS ORDERED: LIDOCAINE HCL 1% PRESERVATIVE FREE - 30ML VIAL ONE (17:55)
[2025-05-06] MEDS ORDERED: OXYTOCIN 20 UNITS in 0.9% NS 20 UNIT/1,000 ML INFUS.BAG IV ONE (17:55)
[2025-05-06] MEDS ORDERED: WITCH HAZEL 50% (TUCKS) 40 PAD/JAR PAD TP PRN (19:02)
[2025-05-06] MEDS ORDERED: BENZOCAINE 28 GM HEMORRHOIDAL OINTMENT TP PRN (19:02)
[2025-05-06] MEDS ORDERED: BENZOCAINE 20% 57 GM BOTTLE TP PRN (19:02)
[2025-05-06] MEDS ORDERED: METHYLERGONOVINE MALEATE 0.2 MG/1 ML AMP IM PRN (19:02)
[2025-05-06] MEDS ORDERED: ACETAMINOPHEN 325 MG TABLET (FP) PO PRN (19:02)
[2025-05-06] MEDS ORDERED: BISACODYL 10 MG SUPP.RECT RC PRN (19:02)
[2025-05-06] MEDS: OXYTOCIN 20 UNITS in 0.9% NS 20 UNIT/1,000 ML INFUS.BAG IV SCH (19:15)
[2025-05-06 19:58] LABS: CORD BASE EXCESS -6.6 mmol/L (0-2); CORD HCO3 23.8 mmHg (20-29); CORD PCO2 67.2 mmHg (30-78); CORD pH 7.167 (7.14-7.44)
[2025-05-06 19:59] LABS: CORD BASE EXCESS -7.2 mmol/L (0-2); CORD HCO3 18.2 mmHg (20-29); CORD PCO2 37.3 mmHg (30-78); CORD pH 7.307 (7.14-7.44)
[2025-05-06] MEDS: IBUPROFEN 600 MG TABLET (FP) PO PRN (21:25)
[2025-05-06] MEDS ORDERED: IBUPROFEN 600 MG TABLET (FP) PO ONE (21:25)
[2025-05-07 07:48] LABS: HEMATOCRIT 33.5 % (34.1-44.9); HEMOGLOBIN 10.5 g/dL (11.2-15.7); MCHC 31.3 g/dl (32.2-35.5); MEAN CELL VOLUME 89.1 fl (79.4-94.8); PLATELET COUNT 208 x10^3/uL (182-369); RDW 15.9 % (12.1-16.8)
[2025-05-07] MEDS ORDERED: SENNOSIDES/DOCUSATE COMBO (SENNA PLUS) TABLET (UD) PO PRN (22:00)
[2025-05-08 10:28] VITALS: BP 128/88; PULSE 81; TEMP 98.2
== END 2025-05-08 11:45 | disposition home or self-care (01) | DRG 560 ==
LOC: JLDR 07:25 → J3W 21:40
PROVIDERS: ADMIT Obstetrics & Gynecology; ATTEND Obstetrics & Gynecology
PROC: 10E0XZZ Delivery of Products of Conception, External Approach (ICD-10-PCS; principal; 2025-05-06)
DX: O36.5930 Maternal care for other known or suspected poor fetal growth, third trimester, not applicable or unspecified (principal); O24.429 Gestational diabetes mellitus in childbirth, unspecified control; O13.4 Gestational [pregnancy-induced] hypertension without significant proteinuria, complicating childbirth; O69.81X0 Labor and delivery complicated by cord around neck, without compression, not applicable or unspecified; Z3A.37 37 weeks gestation of pregnancy; Z37.0 Single live birth
CPT/HCPCS: 36415; 36600; 59409; 80048; 82803; 82962; 85025; 85610; 85730; 86780; 86850; 86900; 86901; 88307-TC